=== PATIENT | female | born 1975 | race Two or more races ===

== ENCOUNTER 2021-04-05 08:57 | Day surgery (SDC) | payer OTHER ==
[~2021-04-05 08:57] MED LIST: ABATINEX680 MG PO; COZAAR50 MG PO; ENTYVIO300 MG IV; NORVASC5 MG PO; VITA D PO
[2021-04-05] MEDS ORDERED: PERCOCET 5-3251 EACH PO (11:16)
== END 2021-04-05 17:20 | disposition home or self-care (01) ==
LOC: CIR.AMB 08:57 → ADM 10:15 → CIR.AMB 10:15
PROVIDERS: ATTEND Surgery
DX: K60.3 Anal fistula (principal); Z20.822 Contact with and (suspected) exposure to COVID-19